=== PATIENT | male | born 1990 | race Caucasian/White ===

== ENCOUNTER 2017-03-01 22:48 | Emergency (ER) | payer SELFPAY ==
--- NOTE | 2017-03-01 23:05 | EDM.PDOC ---
ED HPI GENERAL MEDICAL PROBLEM - General Chief Complaint: Gastrointestinal Problem Stated Complaint: PT VOMIT AND DIARRHEA Time Seen by Provider: 03/01/17 23:10 Source of Information: Reports: Patient History Limitations: Reports: No Limitations - History of Present Illness INITIAL COMMENTS - FREE TEXT/NARRATIVE: HISTORY AND PHYSICAL: History of present illness: [26-year-old male with no significant past medical history now presents emergency department complaining of nausea and vomiting. Patient had a burger at a gas station this evening after which he evolved vomiting and diarrhea. Patient was concerned he might of gotten a bad hamburger. Denies abdominal pain. No fevers chills sweats or shaking chills. No headache or stiff neck. Normal bladder habits] Review of systems: As per history of present illness and below otherwise all systems reviewed and negative. Past medical history: As per history of present illness and as reviewed below otherwise noncontributory. Surgical history: As per history of present illness and as reviewed below otherwise noncontributory. Social history: No reported history of drug or alcohol abuse. Family history: As per history of present illness and as reviewed below otherwise noncontributory. Physical exam: HEENT: Atraumatic, normocephalic, pupils reactive, negative for conjunctival pallor or scleral icterus, mucous membranes moist, throat clear, neck supple, nontender, trachea midline. Lungs: Clear to auscultation, breath sounds equal bilaterally, chest nontender. Heart: S1S2, regular, negative for clicks, rubs, or JVD. Abdomen: Soft, nondistended, nontender. Negative for masses or hepatosplenomegaly. Negative for costovertebral tenderness. Normal bowel sounds. Benign abdomen. Pelvis: Stable nontender. Genitourinary: Deferred. Rectal: Deferred. Extremities: Atraumatic, negative for cords or calf pain. Neurovascular unremarkable. Neuro: Awake, alert, oriented. Cranial nerves grossly unremarkable. Cerebellum unremarkable. Motor and sensory unremarkable throughout. Exam nonfocal. Diagnostics: [Basic metabolic panel pending] Therapeutics: [Antiemetic and IV fluids initiated] Impression: [] Plan: [Signs and symptoms consistent with gastroenteritis. Patient nontoxic and well- appearing. Basic metabolic panel pending to rule out electrolyte abnormality. IV fluids administered with antiemetic. Patient improved after treatment. If results are unremarkable patient agrees with outpatient follow-up and will be prescribed an antiemetic. No further workup or treatment will be indicated and strict return precautions will be given] Definitive disposition and diagnosis as appropriate pending reevaluation and review of above. - Related Data Allergies Allergy/AdvReac Type Severity Reaction Status Date / Time No Known Allergies Allergy Verified 03/01/17 23:11 Home Meds: Home Meds Ondansetron [Zofran ODT] 4 mg SL Q4H PRN #16 tab.dis 03/02/17 [Rx] ED ROS GENERAL - Review of Systems Review Of Systems: See Below (History of present illness) ED EXAM, GI/ABD - Physical Exam Exam: See Below (History of present illness) Course - Vital Signs Last Recorded V/S: Last Vital Signs Temp 36.9 C 03/02/17 01:25 Pulse 80 03/02/17 01:25 Resp 16 03/02/17 01:25 BP 132/82 03/02/17 01:25 Pulse Ox 98 03/02/17 01:25 - Orders/Labs/Meds Labs: Laboratory Tests 03/01/17 Range/Units 23:29 Sodium 139 (136-146) mmol/L Potassium 3.9 (3.5-5.1) mmol/L Chloride 103 (98-110) mmol/L Carbon Dioxide 22 (21-31) mmol/L BUN 14 (6.0-23.0) mg/dL Creatinine 1.0 (0.6-1.5) mg/dL Est Cr Clr Drug Dosing TNP Estimated GFR (MDRD) > 60.0 ml/min Glucose 113 H (60-110) mg/dL Calcium 9.1 (8.8-10.8) mg/dL Meds: Medications Discontinued Medications Generic Name Dose Route Start Last Admin Trade Name Freq PRN Reason Stop Dose Admin Sodium Chloride 1,000 mls @ 999 mls/hr 03/01/17 23:20 03/01/17 23:31 Normal Saline IV 03/02/17 00:20 999 mls/hr .Bolus ONE Administration Ondansetron HCl 4 mg 03/01/17 23:20 03/01/17 23:32 Zofran IVPUSH 03/01/17 23:21 4 mg ONETIME ONE Administration Departure - Departure Time of Disposition: 00:26 Disposition: Home, Self-Care 01 Condition: good Clinical Impression: Gastroenteritis, Mild dehydration - Discharge Information Prescriptions: Ondansetron [Zofran ODT] 4 mg SL Q4H PRN #16 tab.dis PRN Reason: Nausea Instructions: Nausea and Vomiting, Adult, [id number] Referrals: PCP,None [Primary Care Provider] - Forms: ED Department Discharge Additional Instructions: Your vomiting and diarrhea has resulted in very mild dehydration today. You've improved after IV fluids. Use Zofran as needed for nausea and vomiting. Rest and keep yourself as well hydrated as possible. Follow-up here tomorrow and return immediately for new severe or worsening symptoms.
[2017-03-01] MEDS ORDERED: Sodium Chloride 0.9% 1,000 ML IV ONE (23:20)
[2017-03-01] MEDS ORDERED: Ondansetron 4 MG/2 ML SDV IVPUSH ONE (23:20)
[2017-03-01 23:52] LABS: CHLORIDE,CL 103 mmol/L (98-110); SODIUM,NA 139 mmol/L (136-146)
[2017-03-02 01:38] VITALS: BP 132/82
== END 2017-03-02 01:25 | disposition home or self-care (01) ==
LOC: MW.ED 22:48
DX: K52.9 Noninfective gastroenteritis and colitis, unspecified (principal); E86.0 Dehydration
CPT/HCPCS: 36415; 80048; 96361; 96374; 99284; J2405; J7040; 99282